=== PATIENT | female | born 1995 | race Caucasian/White ===

== ENCOUNTER 2022-02-16 00:42 | Emergency (ER) | payer BC ==
[2022-02-16] MEDS ORDERED: Acetaminophen 500 MG Tab PO ONE (00:54)
[2022-02-16 02:02] LABS: CARBON DIOXIDE,CO2 24.9 mmol/L (21.0-32.0); POTASSIUM,K 3.6 mmol/L (3.5-5.1)
== END 2022-02-16 02:20 | disposition home or self-care (01) ==
LOC: MW.ED 00:42
DX: O99.891 Other specified diseases and conditions complicating pregnancy (principal); F19.939 Other psychoactive substance use, unspecified with withdrawal, unspecified; Z3A.01 Less than 8 weeks gestation of pregnancy; Z88.2 Allergy status to sulfonamides; Z79.899 Other long term (current) drug therapy
CPT/HCPCS: 36415; 71045; 80053; 84484; 85025; 93005; 99285; A9270